=== PATIENT | female | born 1985 | race Caucasian/White ===

== ENCOUNTER → 2016-04-30 | Outpatient (CLI) | payer BC ==
[~2016-04-30] MED LIST: ADALAT CC60 MG PO; CEPHALEXIN500 M1 PO; DOXYCYCLINE HY100 MG PO; FERROUS SU325 MG/TAB PO; GAS-X80 MG PO; IBU600 MG PO; MEDROL4 MG; MOTRIN 600600 MG/TAB PO; NORCO 325 MG-51 TAB PO; PERCOCET 325 MG1 TA2 PO; PRENATAL1 TA7 PO; PROCARDIA10 MG PO; TYLENOL 500MG500 MG; ZANTAC 150MG T150 MG PO
== END ==
LOC: COL.LAB 14:02
DX: Z32.00 Encounter for pregnancy test, result unknown (principal)

== ENCOUNTER → 2016-05-02 | Outpatient (CLI) | payer BC | LOC: COL.LAB 13:25 | DX: Z32.01 Encounter for pregnancy test, result positive (principal) ==

== ENCOUNTER → 2016-05-06 | Outpatient (CLI) | payer BC | LOC: COL.LAB 11:20 | DX: Z32.01 Encounter for pregnancy test, result positive (principal) ==

== ENCOUNTER → 2016-05-08 | Outpatient (CLI) | payer BC | LOC: COL.LAB 12:18 | DX: Z32.01 Encounter for pregnancy test, result positive (principal) ==

== ENCOUNTER 2016-10-14 03:31 | Outpatient (CLI) | payer BC ==
[~2016-10-14] VITALS: Ht 154.9 cm; Wt 56.4 kg
[2016-10-14] VITALS (12 sets, daily range): BP systolic 122–155; BP diastolic 65–90; PULSE 85–107; TEMP 97.7–98.1
[~2016-10-14 03:31] MED LIST changes: -ADALAT CC60 MG PO; -CEPHALEXIN500 M1 PO; -FERROUS SU325 MG/TAB PO; -IBU600 MG PO; -MOTRIN 600600 MG/TAB PO; -PERCOCET 325 MG1 TA2 PO; -PRENATAL1 TA7 PO; -PROCARDIA10 MG PO; -TYLENOL 500MG500 MG
[2016-10-14 05:27] LABS: MEAN CELL VOLUME 94 fl (80.0-100.0); MEAN CORPUSCULAR HGB CONC 35 g/dl (33.0-37.0); MEAN PLATELET VOLUME 9.7 fl (7.4-10.4); PLATELET COUNT 205 K/mm3 (130-400); RED BLOOD COUNT 2.65 M/mm3 (4.10-5.30); REDCELL DISTRIBUTION WIDTH-CV 13.2 % (11.5-14.5); WHITE BLOOD COUNT 14.4 K/mm3 (4.8-10.8)
[2016-10-14 05:30] LABS: ADD PATHOLOGY DIFF REVIEW NO; HEMATOCRIT 24.9 % (37.0-47.0); HEMOGLOBIN 8.8 g/dl (12.5-16.0); MEAN CORPUSCULAR HEMOGLOBIN 33 pg (27.0-31.0)
[2016-10-14 05:35] LABS: BAND 15 % (0-10); EOSINOPHIL 2 % (0-4); METAMYELOCYTE 1 % (0-0); NEUTROPHILS 53 % (42.0-75.2); PLATELET ESTIMATE NORMAL (NORMAL); TOTAL CELLS COUNTED 100
[2016-10-14 05:36] LABS: ADJUSTED CALCIUM 9.1 mg/dL (8.4-10.2); ALBUMIN 3.1 gm/dL (3.5-5.0); BILIRUBIN,TOTAL 0.2 mg/dL (0.0-1.0); CALCIUM 8.4 mg/dL (8.4-10.2); CREATININE, serum 0.48 mg/dL (0.52-1.25); POTASSIUM 3.5 mmol/L (3.4-5.0); TOTAL PROTEIN 5.9 gm/dL (6.4-8.2)
[2016-10-14] MEDS ORDERED: PRENATAL1 TA7 PO (05:37)
[2016-10-14 06:12] LABS: PH 6 (5-8); SQUAMOUS EPITHELIAL 0-2 /hpf; URINE APPEARANCE Clear; URINE BACTERIA Rare /hpf; URINE BILIRUBIN Negative (NEGATIVE); URINE BLOOD Negative (NEGATIVE); URINE COLOR Yellow; URINE GLUCOSE Negative (NEGATIVE); URINE KETONE Negative (NEGATIVE); URINE RBC 0-2 /hpf; URINE UROBILINOGEN Negative (NEGATIVE)
== END 2016-10-14 09:35 | disposition home or self-care (01) ==
LOC: LDRO 03:31
PROVIDERS: Student in an Organized Health Care Education/Training Program
DX: O30.003 Twin pregnancy, unspecified number of placenta and unspecified number of amniotic sacs, third trimester (principal); Z3A.28 28 weeks gestation of pregnancy
CPT/HCPCS: J0702; J3105; J7120

== ENCOUNTER 2016-11-18 02:28 | Outpatient (CLI) | payer BC ==
[~2016-11-18] VITALS: Ht 154.9 cm; Wt 60.9 kg
[~2016-11-18 02:28] MED LIST changes: +PRENATAL1 TA7 PO
[2016-11-18] MEDS ORDERED: PROCARDIA10 MG PO (03:03)
[2016-11-18] MEDS ORDERED: TYLENOL 500MG500 MG (03:05)
[2016-11-18 03:30] VITALS: BP 139/89; PULSE 85; TEMP 98
== END 2016-11-18 04:13 | disposition home or self-care (01) ==
LOC: LDRO 02:28
DX: O60.03 Preterm labor without delivery, third trimester (principal); Z3A.32 32 weeks gestation of pregnancy

== ENCOUNTER 2016-12-07 03:27 | Inpatient (IN) | payer BC ==
[2016-12-07] VITALS (35 sets, daily range): BP systolic 11–177; BP diastolic 60–140; PULSE 62–104; TEMP 97.3–98.4
[~2016-12-07] VITALS: Ht 154.9 cm; Wt 63.6 kg
[~2016-12-07 03:27] MED LIST changes: +PROCARDIA10 MG PO; +TYLENOL 500MG500 MG
[2016-12-07 05:55] LABS: BASO % 0.3 % (0.0-2.0); EOS # 0.1 (0.0-0.7); EOS % 0.8 % (0-4.0); GRAN # 10.3 (1.4-6.5); GRAN % 65.4 % (42.2-75.2); LYMPH % 25.5 % (20.0-51.0); MEAN CELL VOLUME 93 fl (80.0-100.0); MEAN CORPUSCULAR HGB CONC 34 g/dl (33.0-37.0); MEAN PLATELET VOLUME 10.6 fl (7.4-10.4); MONO % 6.4 % (1.7-9.3); PLATELET COUNT 251 K/mm3 (130-400); RED BLOOD COUNT 2.99 M/mm3 (4.10-5.30); REDCELL DISTRIBUTION WIDTH-CV 13.4 % (11.5-14.5); WHITE BLOOD COUNT 15.7 K/mm3 (4.8-10.8)
[2016-12-07 05:56] LABS: HEMATOCRIT 27.7 % (37.0-47.0); HEMOGLOBIN 9.5 g/dl (12.5-16.0); MEAN CORPUSCULAR HEMOGLOBIN 32 pg (27.0-31.0)
[2016-12-07 06:06] LABS: PH 7 (5-8); SQUAMOUS EPITHELIAL 0-2 /hpf; URINE APPEARANCE Hazy; URINE BACTERIA None Seen /hpf; URINE BILIRUBIN Negative (NEGATIVE); URINE BLOOD Negative (NEGATIVE); URINE COLOR Yellow; URINE GLUCOSE Negative (NEGATIVE); URINE KETONE Negative (NEGATIVE); URINE RBC 0-2 /hpf; URINE UROBILINOGEN Negative (NEGATIVE); URINE WBC 0-2 /hpf
[2016-12-07 06:07] LABS: ADJUSTED CALCIUM 10.7 mg/dL (8.4-10.2); ALBUMIN 3.1 gm/dL (3.5-5.0); BILIRUBIN,TOTAL 0.3 mg/dL (0.0-1.0); CREATININE, serum 0.64 mg/dL (0.52-1.25); POTASSIUM 3.8 mmol/L (3.4-5.0); TOTAL PROTEIN 6.1 gm/dL (6.4-8.2)
[2016-12-08] VITALS (11 sets, daily range): BP systolic 129–153; BP diastolic 73–92; PULSE 64–91; TEMP 97.5–98.1
[2016-12-08 11:17] LABS: HEMATOCRIT 21.8 % (37.0-47.0); HEMOGLOBIN 7.2 g/dl (12.5-16.0)
[2016-12-09] MEDS ORDERED: CEPHALEXIN500 M1 PO (04:57)
[2016-12-09] MEDS ORDERED: MOTRIN 600600 MG/TAB PO (04:58)
[2016-12-09] MEDS ORDERED: PERCOCET 325 MG1 TA2 PO (04:58)
[2016-12-09 07:29] LABS: BASO % 0.2 % (0.0-2.0); EOS # 0.2 (0.0-0.7); EOS % 1.3 % (0-4.0); GRAN # 8.2 (1.4-6.5); GRAN % 65.2 % (42.2-75.2); LYMPH # 3.2 (1.2-3.4); LYMPH % 25.4 % (20.0-51.0); MEAN CELL VOLUME 91 fl (80.0-100.0); MEAN CORPUSCULAR HGB CONC 34 g/dl (33.0-37.0); MEAN PLATELET VOLUME 10.3 fl (7.4-10.4); MONO # 0.9 (0.1-0.6); MONO % 6.8 % (1.7-9.3); PLATELET COUNT 222 K/mm3 (130-400); RED BLOOD COUNT 3.08 M/mm3 (4.10-5.30); REDCELL DISTRIBUTION WIDTH-CV 14.5 % (11.5-14.5); WHITE BLOOD COUNT 12.6 K/mm3 (4.8-10.8)
[2016-12-09 07:38] LABS: HEMATOCRIT 28.1 % (37.0-47.0); HEMOGLOBIN 9.5 g/dl (12.5-16.0); MEAN CORPUSCULAR HEMOGLOBIN 31 pg (27.0-31.0)
[2016-12-09 08:00] VITALS: BP 163/90; PULSE 66; TEMP 97.4
[2016-12-09 09:31] VITALS: BP 149/87; PULSE 72
[2016-12-09 16:34] VITALS: BP 148/83; PULSE 68; TEMP 98.1
[2016-12-09 20:30] VITALS: BP 152/81; PULSE 72; TEMP 98
[2016-12-10 09:40] VITALS: BP 157/88; PULSE 63; TEMP 97.9
[2016-12-10 13:30] VITALS: BP 143/88; PULSE 80
[2016-12-10] MEDS ORDERED: ADALAT CC60 MG PO (13:41)
[2016-12-10] MEDS ORDERED: PERCOCET 325 MG1 TA2 PO (13:41)
[2016-12-10] MEDS ORDERED: IBU600 MG PO (13:41)
[2016-12-10] MEDS ORDERED: FERROUS SU325 MG/TAB PO (13:42)
== END 2016-12-10 14:35 | disposition home or self-care (01) | DRG 765 ==
LOC: LDRO 03:27 → LDR 07:29 → OB 09:51
PROVIDERS: Obstetrics & Gynecology
PROC: 10D00Z1 Extraction of Products of Conception, Low, Open Approach (ICD-10-PCS; principal; 2016-12-07)
DX: O11.4 Pre-existing hypertension with pre-eclampsia, complicating childbirth (principal); D62 Acute posthemorrhagic anemia; O99.02 Anemia complicating childbirth; O30.043 Twin pregnancy, dichorionic/diamniotic, third trimester; O34.211 Maternal care for low transverse scar from previous cesarean delivery; N85.8 Other specified noninflammatory disorders of uterus; O10.92 Unspecified pre-existing hypertension complicating childbirth; O99.334 Smoking (tobacco) complicating childbirth; F17.210 Nicotine dependence, cigarettes, uncomplicated; O99.824 Streptococcus B carrier state complicating childbirth; Z3A.36 36 weeks gestation of pregnancy; Z37.2 Twins, both liveborn
CPT/HCPCS: J0690; J1885; J2175; J2270; J2370; J2405; J2590; J7120; P9016

== ENCOUNTER 2017-01-20 09:35 | Emergency (ER) | payer BC ==
[~2017-01-20] VITALS: Ht 152.4 cm; Wt 50.0 kg
[~2017-01-20 09:35] MED LIST changes: +ADALAT CC60 MG PO; +CEPHALEXIN500 M1 PO; +FERROUS SU325 MG/TAB PO; +IBU600 MG PO; +MOTRIN 600600 MG/TAB PO; +PERCOCET 325 MG1 TA2 PO
[2017-01-20 09:39] VITALS: TEMP 98
[2017-01-20 10:25] LABS: BASO % 0.4 % (0.0-2.0); EOS # 0.2 (0.0-0.7); EOS % 2.5 % (0-4.0); GRAN # 3.8 (1.4-6.5); GRAN % 56.8 % (42.2-75.2); HEMOGLOBIN 12.2 g/dl (12.5-16.0); LYMPH # 2.2 (1.2-3.4); LYMPH % 32.7 % (20.0-51.0); MEAN CELL VOLUME 94 fl (80.0-100.0); MEAN CORPUSCULAR HEMOGLOBIN 31 pg (27.0-31.0); MEAN CORPUSCULAR HGB CONC 33 g/dl (33.0-37.0); MEAN PLATELET VOLUME 9.8 fl (7.4-10.4); MONO # 0.5 (0.1-0.6); MONO % 7.5 % (1.7-9.3); PLATELET COUNT 338 K/mm3 (130-400); RED BLOOD COUNT 3.89 M/mm3 (4.10-5.30); REDCELL DISTRIBUTION WIDTH-CV 13.1 % (11.5-14.5); WHITE BLOOD COUNT 6.7 K/mm3 (4.8-10.8)
[2017-01-20 10:31] LABS: HEMATOCRIT 36.5 % (37.0-47.0)
[2017-01-20 10:34] LABS: ALBUMIN 3.9 gm/dL (3.5-5.0); BILIRUBIN,TOTAL 0.4 mg/dL (0.0-1.0); CALCIUM 8.9 mg/dL (8.4-10.2); CREATININE, serum 0.62 mg/dL (0.52-1.25); POTASSIUM 3.5 mmol/L (3.4-5.0); TOTAL PROTEIN 6.7 gm/dL (6.4-8.2)
[2017-01-20] MEDS ORDERED: NORMODYNE100 MG PO (11:30)
[2017-01-20 11:37] VITALS: BP 131/87; PULSE 71
[2017-01-20] MEDS ORDERED: NORCO 325 MG-51 TAB PO (11:47)
== END 2017-01-20 11:47 | disposition home or self-care (01) ==
LOC: COL.ER 09:35
PROVIDERS: Family Medicine
DX: N92.1 Excessive and frequent menstruation with irregular cycle (principal); I10 Essential (primary) hypertension; Z87.59 Personal history of other complications of pregnancy, childbirth and the puerperium
CPT/HCPCS: J7030

== ENCOUNTER 2021-02-15 19:15 | Emergency (ER) | payer BC ==
[~2021-02-15] VITALS: Ht 154.9 cm; Wt 60.0 kg
[~2021-02-15 19:15] MED LIST changes: +NORMODYNE100 MG PO
[2021-02-15 19:26] VITALS: TEMP 98.4
[2021-02-15 20:08] LABS: COLLECTION METHOD CLEAN CATCH
[2021-02-15 20:24] LABS: MUCOUS Present /lpf; PH 5 (5-8); URINE APPEARANCE Hazy; URINE BACTERIA Occasional /hpf; URINE BILIRUBIN Negative (NEGATIVE); URINE BLOOD Negative (NEGATIVE); URINE COLOR Yellow; URINE GLUCOSE Negative (NEGATIVE); URINE KETONE Negative (NEGATIVE); URINE LEUKOCYTE ESTERASE Negative (NEGATIVE); URINE NITRATE Negative (NEGATIVE); URINE PROTEIN(semi-quant) Negative (NEGATIVE); URINE RBC 0-2 /hpf; URINE UROBILINOGEN Negative (NEGATIVE)
[2021-02-15] MEDS ORDERED: NAPROSYN500 MG PO (21:57)
[2021-02-15 22:25] VITALS: BP 154/70; PULSE 76
== END 2021-02-15 22:25 | disposition home or self-care (01) ==
LOC: COL.ER 19:15
PROVIDERS: Nurse Practitioner Primary Care
DX: M54.6 Pain in thoracic spine (principal); Z87.440 Personal history of urinary (tract) infections
CPT/HCPCS: J1885

== ENCOUNTER 2021-07-25 07:55 | Day surgery (SDC) | payer BC ==
[2021-07-25] VITALS (7 sets, daily range): BP systolic 102–138; BP diastolic 73–89; PULSE 65–90; TEMP 98.5
[~2021-07-25] VITALS: Ht 157.5 cm; Wt 55.6 kg
[~2021-07-25 07:55] MED LIST changes: +NAPROSYN500 MG PO
[2021-07-25] MEDS ORDERED: ZOLOFT 100MG100 MG PO (08:31)
[2021-07-25] MEDS ORDERED: WELLBUTRIN XL150 MG PO (08:31)
--- NOTE | 2021-07-25 10:10 | NUR ---
Patient returns to room 7 per cart from surgery accompanied by Yandel STEPHENS and Tierra RN. Patient arouses to verbal stimuli. Has mild nausea that is resolving. Temp 97.2. Shivering and hot blankets given. Spouse in room. Call light in reach. Siderails up x2. Dr. Tillman in the room and talks with patient and spouse. Will continue to monitor.
--- NOTE | 2021-07-25 10:25 | NUR ---
Shivering has subsided. States her foot is throbbing but closes eyes and rests. Allowed to rest.
--- NOTE | 2021-07-25 10:40 | NUR ---
Continues to rest with eyes closed and not disturbed.
--- NOTE | 2021-07-25 10:55 | NUR ---
Resting with eyes closed and not disturbed. Spouse in room.
--- NOTE | 2021-07-25 11:10 | NUR ---
Continues to rest with eyes closed and not disturbed.
--- NOTE | 2021-07-25 11:40 | NUR ---
Continues to rest with eyes closed and not disturbed.
--- NOTE | 2021-07-25 12:00 | NUR ---
Awake and eating muffin and drinking Sprite. Denies nausea. Spouse in room.
--- NOTE | 2021-07-25 12:15 | NUR ---
States that her right foot is throbbing. Medicated with Percocet 5mg 2 tabs as ordered. Tolerated muffin and Sprite. Dressing clean and dry on the right foot. Post op shoe on.
--- NOTE | 2021-07-25 12:19 | NUR ---
IV discontinued and site is free of redness or swelling. Patient assisted with dressing by spouse. Tolerates activity well.
--- NOTE | 2021-07-25 12:25 | NUR ---
Dismissal instructions given and patient voices understanding of these.
--- NOTE | 2021-07-25 12:29 | NUR ---
Patient states that the Percocet is beginnging to help. Assisted into wheelchair and taken to the front door and assisted into private vehicle with dismissal instructions in hand. Patient was driven home by spouse.
== END 2021-07-25 12:29 | disposition home or self-care (01) ==
LOC: SDCO 07:55
DX: M20.11 Hallux valgus (acquired), right foot (principal); M21.611 Bunion of right foot; M21.612 Bunion of left foot; F17.210 Nicotine dependence, cigarettes, uncomplicated; F33.42 Major depressive disorder, recurrent, in full remission; Z79.899 Other long term (current) drug therapy
CPT/HCPCS: J0690; J2704; J3010; J7120